=== PATIENT | female | born 1955 | race Two or more races ===

== ENCOUNTER 2021-05-01 16:14 | Inpatient (IN) | payer MEDICARE, OTHER ==
[~2021-05-01] VITALS: Ht 172.7 cm; Wt 72.0 kg
[2021-05-01] MEDS ORDERED: CHOLECALCIFEROL (VITD3) 2,000 UNIT CAP/TAB PO ONE (16:30)
[2021-05-01] MEDS ORDERED: methylPREDNISolone SOD SUCC 125 MG/2 ML VL IV ONE (16:30)
[2021-05-01] MEDS ORDERED: AZITHROMYCIN 500MG/ 250ML 250 ML IV ONE (16:30)
[2021-05-01] MEDS ORDERED: ZINC SULFATE 220mg CAP or TAB PO ONE (16:30)
[2021-05-01] MEDS ORDERED: ASCORBIC ACID 500 MG TAB PO ONE (16:30)
[2021-05-01] MEDS ORDERED: ACETAMINOPHEN 500 MG TAB PO ONE (16:45)
[2021-05-01 17:39] LABS: Basophils # (auto) 0 10 ^3/uL (0-0.2); Basophils % (auto) 0.1 % (0.0-2.0); Eosinophils # (auto) 0 10 ^3/uL (0-0.8); Hemoglobin 13.9 g/dL (12.2-16.2); Lymphocytes # (auto) 0.5 10 ^3/uL (0.4-5.4); Lymphocytes % (auto) 15.1 % (10.0-50.0); Mean Corpuscular Hemoglobin 31.4 pg (28.0-32.0); Mean Corpuscular Hgb Conc. 33.8 g/dL (32.0-36.0); Mean Corpuscular Volume 92.8 fL (80.0-100.0); Monocytes # (auto) 0.2 10 ^3/uL (0-1.3); Monocytes % (auto) 6.2 % (0.0-12.0); Neutrophils # (auto) 2.8 10 ^3/uL (1.6-8.6); Neutrophils % (auto) 78.6 % (37.0-80.0); Red Blood Cells 4.42 10^6/uL (4.0-5.20); Red Cell Distribution Width 13.8 % (11.8-14.3); White Blood Cell 3.5 10^3/uL (4.4-10.8)
[2021-05-01 17:44] LABS: Albumin 2.8 g/dL (3.4-5.0); Anion Gap 10 (5-15); Blood Urea Nitrogen 14 mg/dL (7-18); Carbon Dioxide 24 mmol/L (21-32); Chloride 104 mmol/L (98-107); Glucose 94 mg/dL (74-106); Potassium 3.1 mmol/L (3.5-5.1); Sodium 138 mmol/L (136-145)
[2021-05-01 17:51] LABS: Alanine Aminotransferase 41 U/L (13-56); Alkaline Phosphatase 63 U/L (45-117); Aspartate Aminotransferase 61 U/L (15-37); BUN/Creatinine Ratio 25.9; Bilirubin, Total 0.7 mg/dL (0.2-1.0); GFR African American 144 mL/min; GFR Non-African American 119 mL/min; Total Protein 6.2 g/dL (6.4-8.2)
[2021-05-01] MEDS ORDERED: REMDESIVIR PER PHARMACY 0 ML IV SCH (18:00)
[2021-05-01] MEDS ORDERED: POTASSIUM CHL 20MEQ/50ML 50 ML IV ONE (18:00)
[2021-05-01] MEDS ORDERED: REMDESIVIR 200 MG in NS 210ml LOADING DOSE ADULT IV ONE (20:30)
[2021-05-01] MEDS ORDERED: cefTRIAXone 1GM/50ML D5W 50 ML IV ONE (21:30)
[2021-05-01] MEDS: BUDESONIDE (INHALATION) 180 MCG IH IN SCH (22:00)
[2021-05-01] MEDS: IPRATROPIUM BROMIDE HFA AER IN SCH (22:00)
[2021-05-01] MEDS: ENOXAPARIN SOD 40 MG/0.4 ML SYRINGE SC SCH (23:00)
[2021-05-01] MEDS ORDERED: NITROGLYCERIN 0.4 MG SL TAB SL PRN (23:45)
[2021-05-01] MEDS ORDERED: MORPHINE SULFATE INJECTION 2 MG/ML SYRG IV PRN (23:45)
[2021-05-02] MEDS ORDERED: ROSU5TAB5 PO (02:08)
[2021-05-02] MEDS ORDERED: ASPI81CH49 PO (02:08)
[2021-05-02] MEDS ORDERED: SERT100T PO (02:08)
[2021-05-02] MEDS ORDERED: AMLO-496 PO (02:08)
[2021-05-02] MEDS ORDERED: OMEP20TA PO (02:08)
[2021-05-02] MEDS ORDERED: SULI200T4 PO (02:08)
[2021-05-02] MEDS: IPRATROPIUM BROMIDE HFA AER IN SCH ×2 (07:28→14:36)
[2021-05-02 07:40] LABS: Basophils # (auto) 0 10 ^3/uL (0-0.2); Basophils % (auto) 0.4 % (0.0-2.0); Eosinophils # (auto) 0 10 ^3/uL (0-0.8); Hematocrit 40.6 % (36.0-46.0); Lymphocytes # (auto) 0.5 10 ^3/uL (0.4-5.4); Lymphocytes % (auto) 17.1 % (10.0-50.0); Mean Corpuscular Hemoglobin 31.7 pg (28.0-32.0); Mean Corpuscular Hgb Conc. 34.4 g/dL (32.0-36.0); Mean Corpuscular Volume 92.2 fL (80.0-100.0); Monocytes # (auto) 0.1 10 ^3/uL (0-1.3); Monocytes % (auto) 5.5 % (0.0-12.0); Neutrophils # (auto) 2.1 10 ^3/uL (1.6-8.6); Red Blood Cells 4.41 10^6/uL (4.0-5.20); Red Cell Distribution Width 13.4 % (11.8-14.3); White Blood Cell 2.7 10^3/uL (4.4-10.8)
[2021-05-02 08:14] LABS: Albumin 2.5 g/dL (3.4-5.0); BUN/Creatinine Ratio 46.4; Calcium 7.9 mg/dL (8.5-10.1); Potassium 3.1 mmol/L (3.5-5.1)
[2021-05-02 08:17] LABS: Bilirubin, Total 0.5 mg/dL (0.2-1.0); Total Protein 5.9 g/dL (6.4-8.2)
[2021-05-02 08:59] LABS: Urine Bacteria NONE SEEN /hpf (None Seen); Urine Blood Negative /uL (Negative); Urine Specific Gravity 1.015 (1.001-1.035); Urine WBC 1 /hpf (0 - 5)
[2021-05-02] MEDS: cefTRIAXone 1GM/50ML D5W 50 ML IV SCH (09:37)
[2021-05-02] MEDS: BUDESONIDE (INHALATION) 180 MCG IH IN SCH ×2 (10:00→21:42)
[2021-05-02] MEDS: DexAMETHasone SOD PHOS 10MG/1ML VIAL INJ IV SCH (10:21)
[2021-05-02] MEDS: AZITHROMYCIN 500MG/ 250ML 250 ML IV SCH (10:21)
[2021-05-02] MEDS: ZINC SULFATE 220mg CAP or TAB PO SCH (10:21)
[2021-05-02] MEDS: IVERMECTIN 3 MG TAB PO SCH (10:22)
[2021-05-02] MEDS: ASCORBIC ACID 1,000 MG TAB PO SCH (10:22)
[2021-05-02] MEDS: CHOLECALCIFEROL (VITD3) 2,000 UNIT CAP/TAB PO SCH (10:22)
[2021-05-02] MEDS: ENOXAPARIN SOD 40 MG/0.4 ML SYRINGE SC SCH ×2 (10:22→22:43)
[2021-05-02] MEDS ORDERED: IOHEXOL 350 MG/ML 100ML IJ ONE ×2 (11:04→14:17)
[2021-05-02 14:39] VITALS: BP 168/82
[2021-05-02] MEDS ORDERED: IPRATROPIUM BROMIDE HFA AER IN SCH (15:15)
[2021-05-02] MEDS: REMDESIVIR 100mg 100 MG in SODIUM CHL 0.9% 230 ML IV SCH (16:37)
[2021-05-02 17:00] VITALS: BP 126/71
[2021-05-02 20:00] VITALS: BP 128/78
[2021-05-02] MEDS: ALBUTEROL SULF HFA 90MCG INH 200DOSE IN PRN (21:45)
[2021-05-02] MEDS: ONDANSETRON HCL 4 MG/2 ML VIAL IV PRN (22:43)
[2021-05-03] MEDS: ACETAMINOPHEN 500 MG TAB PO PRN (03:17)
[2021-05-03 05:00] VITALS: BP 131/73
[2021-05-03] MEDS: BUDESONIDE (INHALATION) 180 MCG IH IN SCH ×2 (06:56→22:14)
[2021-05-03] MEDS: ALBUTEROL SULF HFA 90MCG INH 200DOSE IN PRN ×2 (06:56→22:15)
[2021-05-03 07:08] LABS: Potassium 3.6 mmol/L (3.5-5.1)
[2021-05-03 07:18] LABS: Albumin 2.5 g/dL (3.4-5.0); BUN/Creatinine Ratio 66.7; Bilirubin, Total 0.6 mg/dL (0.2-1.0); Total Protein 5.8 g/dL (6.4-8.2)
[2021-05-03 09:00] VITALS: BP 112/55
[2021-05-03] MEDS: cefTRIAXone 1GM/50ML D5W 50 ML IV SCH (09:49)
[2021-05-03] MEDS: DexAMETHasone SOD PHOS 10MG/1ML VIAL INJ IV SCH (09:49)
[2021-05-03] MEDS: AZITHROMYCIN 500MG/ 250ML 250 ML IV SCH (09:49)
[2021-05-03] MEDS: IVERMECTIN 3 MG TAB PO SCH (09:52)
[2021-05-03] MEDS: ASCORBIC ACID 1,000 MG TAB PO SCH (09:52)
[2021-05-03] MEDS: ZINC SULFATE 220mg CAP or TAB PO SCH (09:52)
[2021-05-03] MEDS: CHOLECALCIFEROL (VITD3) 2,000 UNIT CAP/TAB PO SCH (09:53)
[2021-05-03] MEDS: ENOXAPARIN SOD 40 MG/0.4 ML SYRINGE SC SCH ×2 (09:53→21:32)
[2021-05-03 13:00] VITALS: BP 126/76
[2021-05-03] MEDS: REMDESIVIR 100mg 100 MG in SODIUM CHL 0.9% 230 ML IV SCH (14:45)
[2021-05-03 17:00] VITALS: BP 124/78
[2021-05-03 22:00] VITALS: BP 137/77
[2021-05-03] MEDS: ONDANSETRON HCL 4 MG/2 ML VIAL IV PRN (22:20)
[2021-05-03] MEDS: TEMAZEPAM 15 MG CAP PO PRN (22:21)
[2021-05-04 05:26] VITALS: BP 149/74
[2021-05-04 06:04] LABS: Potassium 3.7 mmol/L (3.5-5.1)
[2021-05-04 06:11] LABS: Albumin 2.7 g/dL (3.4-5.0); BUN/Creatinine Ratio 67.5; Bilirubin, Total 0.7 mg/dL (0.2-1.0); Calcium 8.1 mg/dL (8.5-10.1); Total Protein 6.1 g/dL (6.4-8.2)
[2021-05-04] MEDS ORDERED: HYDROcodone-ACET 5/325MG TAB PO ONE (06:15)
[2021-05-04] MEDS: ALBUTEROL SULF HFA 90MCG INH 200DOSE IN PRN ×2 (06:44→20:49)
[2021-05-04] MEDS: BUDESONIDE (INHALATION) 180 MCG IH IN SCH ×2 (06:44→20:49)
[2021-05-04] MEDS: cefTRIAXone 1GM/50ML D5W 50 ML IV SCH (07:43)
[2021-05-04] MEDS: DexAMETHasone SOD PHOS 10MG/1ML VIAL INJ IV SCH (08:37)
[2021-05-04] MEDS: AZITHROMYCIN 500MG/ 250ML 250 ML IV SCH (08:38)
[2021-05-04] MEDS: ZINC SULFATE 220mg CAP or TAB PO SCH (08:38)
[2021-05-04] MEDS: CHOLECALCIFEROL (VITD3) 2,000 UNIT CAP/TAB PO SCH (08:39)
[2021-05-04] MEDS: ASCORBIC ACID 1,000 MG TAB PO SCH (08:39)
[2021-05-04] MEDS: IVERMECTIN 3 MG TAB PO SCH (08:39)
[2021-05-04] MEDS: ENOXAPARIN SOD 40 MG/0.4 ML SYRINGE SC SCH ×2 (08:40→21:24)
[2021-05-04 09:00] VITALS: BP 131/67
[2021-05-04 13:00] VITALS: BP 134/78
[2021-05-04] MEDS ORDERED: FUROSEMIDE 20 MG/2 ML VIAL IV ONE (13:15)
[2021-05-04] MEDS: REMDESIVIR 100mg 100 MG in SODIUM CHL 0.9% 230 ML IV SCH (15:05)
[2021-05-04] MEDS: HYDROcodone-ACET 5/325MG TAB PO PRN (15:06)
[2021-05-04 17:00] VITALS: BP 120/70
[2021-05-04 22:00] VITALS: BP 130/71
[2021-05-05] VITALS (9 sets, daily range): BP systolic 121–138; BP diastolic 69–89
[2021-05-05] MEDS: TEMAZEPAM 15 MG CAP PO PRN (01:17)
[2021-05-05 05:43] LABS: Basophils # (auto) 0.1 10 ^3/uL (0-0.2); Basophils % (auto) 0.5 % (0.0-2.0); Eosinophils # (auto) 0 10 ^3/uL (0-0.8); Hematocrit 41.4 % (36.0-46.0); Hemoglobin 14.5 g/dL (12.2-16.2); Lymphocytes # (auto) 0.8 10 ^3/uL (0.4-5.4); Lymphocytes % (auto) 5.2 % (10.0-50.0); Mean Corpuscular Hemoglobin 32.2 pg (28.0-32.0); Mean Corpuscular Volume 91.9 fL (80.0-100.0); Monocytes # (auto) 0.9 10 ^3/uL (0-1.3); Monocytes % (auto) 5.7 % (0.0-12.0); Neutrophils # (auto) 14.1 10 ^3/uL (1.6-8.6); Neutrophils % (auto) 88.6 % (37.0-80.0); Nucleated Red Blood Cells % 0.1 %; Red Cell Distribution Width 13.6 % (11.8-14.3); White Blood Cell 15.9 10^3/uL (4.4-10.8)
[2021-05-05 06:20] LABS: Albumin 2.8 g/dL (3.4-5.0); Calcium 8.2 mg/dL (8.5-10.1); Potassium 3.7 mmol/L (3.5-5.1)
[2021-05-05 06:27] LABS: Bilirubin, Total 0.7 mg/dL (0.2-1.0); Total Protein 6.3 g/dL (6.4-8.2)
[2021-05-05] MEDS: ALBUTEROL SULF HFA 90MCG INH 200DOSE IN PRN ×2 (06:45→23:44)
[2021-05-05] MEDS: BUDESONIDE (INHALATION) 180 MCG IH IN SCH ×2 (06:45→21:14)
[2021-05-05] MEDS: cefTRIAXone 1GM/50ML D5W 50 ML IV SCH (07:38)
[2021-05-05] MEDS: DexAMETHasone SOD PHOS 10MG/1ML VIAL INJ IV SCH (08:45)
[2021-05-05] MEDS: FUROSEMIDE 20 MG/2 ML VIAL IV SCH (08:45)
[2021-05-05] MEDS: CHOLECALCIFEROL (VITD3) 2,000 UNIT CAP/TAB PO SCH (08:46)
[2021-05-05] MEDS: IVERMECTIN 3 MG TAB PO SCH (08:46)
[2021-05-05] MEDS: ZINC SULFATE 220mg CAP or TAB PO SCH (08:46)
[2021-05-05] MEDS: AZITHROMYCIN 500MG/ 250ML 250 ML IV SCH (08:46)
[2021-05-05] MEDS: ASCORBIC ACID 1,000 MG TAB PO SCH (08:46)
[2021-05-05] MEDS: ENOXAPARIN SOD 40 MG/0.4 ML SYRINGE SC SCH ×2 (08:47→20:51)
[2021-05-05] MEDS: REMDESIVIR 100mg 100 MG in SODIUM CHL 0.9% 230 ML IV SCH (15:03)
[2021-05-05] MEDS: ONDANSETRON HCL 4 MG/2 ML VIAL IV PRN (18:25)
[2021-05-05] MEDS: HYDROcodone-ACET 5/325MG TAB PO PRN (19:58)
[2021-05-06] VITALS (37 sets, daily range): BP systolic 76–140; BP diastolic 49–76
[2021-05-06] MEDS: HYDROcodone-ACET 5/325MG TAB PO PRN (05:21)
[2021-05-06] MEDS: BUDESONIDE (INHALATION) 180 MCG IH IN SCH (06:39)
[2021-05-06] MEDS: ALBUTEROL SULF HFA 90MCG INH 200DOSE IN PRN (06:39)
[2021-05-06] MEDS: cefTRIAXone 1GM/50ML D5W 50 ML IV SCH (09:00)
[2021-05-06] MEDS: ASCORBIC ACID 1,000 MG TAB PO SCH (09:42)
[2021-05-06] MEDS: FUROSEMIDE 20 MG/2 ML VIAL IV SCH (09:42)
[2021-05-06] MEDS: ZINC SULFATE 220mg CAP or TAB PO SCH (09:42)
[2021-05-06] MEDS: DexAMETHasone SOD PHOS 10MG/1ML VIAL INJ IV SCH (09:42)
[2021-05-06] MEDS: CHOLECALCIFEROL (VITD3) 2,000 UNIT CAP/TAB PO SCH (09:43)
[2021-05-06] MEDS: ENOXAPARIN SOD 40 MG/0.4 ML SYRINGE SC SCH ×2 (09:43→23:10)
[2021-05-06] MEDS: AZITHROMYCIN 500MG/ 250ML 250 ML IV SCH (10:00)
[2021-05-06] MEDS: IVERMECTIN 3 MG TAB PO SCH (10:00)
[2021-05-06] MEDS ORDERED: ETOMIDATE (2MG/ML) 20ML VIAL IV ONE ×2 (11:22→12:45)
[2021-05-06] MEDS ORDERED: ROCURONIUM 10MG/ML 10ML VIAL IV ONE ×2 (11:22→12:45)
[2021-05-06] MEDS ORDERED: SUCCINYLCHOLINE CHLORIDE 20 MG/ML 10ML VIAL IV ONE (11:23)
[2021-05-06] MEDS ORDERED: fentaNYL Drip 2500mCg/250mlNS 250 ML IV ONE (11:25)
[2021-05-06] MEDS: MIDAZOLAM DRIP 50 mg/50mL 50 ML IV SCH ×2 (11:50→21:22)
[2021-05-06] MEDS: fentaNYL Drip 2500mCg/250mlNS 250 ML IV SCH (11:50)
[2021-05-06] MEDS: NOREPINEPHRINE 8 MG/250ML KIT 250 ML IV SCH (13:00)
[2021-05-06 15:00] LABS: INR 1.25 (0.9-1.15); Partial Thromboplastin Time 29.7 sec (23.6-33.0)
[2021-05-06] MEDS ORDERED: LIDOCAINE 1% (LOCAL ANESTH.) PF 5ml SDV ID ONE (17:00)
[2021-05-06] MEDS: SODIUM CHLOR 0.9% PF (SALINE LOCK) 10ML VIAL/SYR IV SCH (23:09)
[2021-05-06] MEDS: ALBUTEROL SULF 2.5 MG/0.5ML(0.5%) NEB SOLN NEB PRN (23:12)
[2021-05-06] MEDS: BUDESONIDE (INHALATION) 0.5 MG/2 ML NEB NEB SCH (23:12)
[2021-05-07] VITALS (76 sets, daily range): BP systolic 92–150; BP diastolic 46–74
[2021-05-07] MEDS: fentaNYL Drip 2500mCg/250mlNS 250 ML IV SCH ×3 (00:19→22:40)
[2021-05-07] MEDS: MIDAZOLAM DRIP 50 mg/50mL 50 ML IV SCH ×4 (01:56→23:12)
[2021-05-07 08:28] LABS: Hematocrit 38.1 % (36.0-46.0); Hemoglobin 13.1 g/dL (12.2-16.2); Mean Corpuscular Hemoglobin 31.8 pg (28.0-32.0); Mean Corpuscular Hgb Conc. 34.3 g/dL (32.0-36.0); Mean Corpuscular Volume 92.8 fL (80.0-100.0); Red Blood Cells 4.11 10^6/uL (4.0-5.20); Red Cell Distribution Width 13.8 % (11.8-14.3); White Blood Cell 26.6 10^3/uL (4.4-10.8)
[2021-05-07 08:35] LABS: Basophils % (manual) 0 (0.0-2.0); Blast Cells 0; Eosinophils % (manual) 0 (0-7); Metamyelocytes % 0; Myelocytes % 0; Promyelocytes % 0; Reactive Lymphocytes 0
[2021-05-07 08:37] LABS: Albumin 2.1 g/dL (3.4-5.0); Calcium 8.2 mg/dL (8.5-10.1); Potassium 3.5 mmol/L (3.5-5.1)
[2021-05-07 08:40] LABS: BUN/Creatinine Ratio 56.9; Bilirubin, Total 0.6 mg/dL (0.2-1.0)
[2021-05-07] MEDS: cefTRIAXone 1GM/50ML D5W 50 ML IV SCH (09:00)
[2021-05-07] MEDS: SODIUM CHLOR 0.9% PF (SALINE LOCK) 10ML VIAL/SYR IV SCH ×2 (10:00→22:41)
[2021-05-07] MEDS: DexAMETHasone SOD PHOS 10MG/1ML VIAL INJ IV SCH (10:00)
[2021-05-07] MEDS: CHOLECALCIFEROL (VITD3) 2,000 UNIT CAP/TAB PO SCH (10:00)
[2021-05-07] MEDS: ZINC SULFATE 220mg CAP or TAB PO SCH (10:00)
[2021-05-07] MEDS: ENOXAPARIN SOD 40 MG/0.4 ML SYRINGE SC SCH ×2 (10:00→22:41)
[2021-05-07] MEDS: FUROSEMIDE 20 MG/2 ML VIAL IV SCH (10:00)
[2021-05-07] MEDS: ASCORBIC ACID 1,000 MG TAB PO SCH (10:00)
[2021-05-07] MEDS: BUDESONIDE (INHALATION) 0.5 MG/2 ML NEB NEB SCH ×2 (10:00→18:36)
[2021-05-07] MEDS: NOREPINEPHRINE 8 MG/250ML KIT 250 ML IV SCH (11:15)
[2021-05-07 11:50] LABS: Band Neutrophils % (manual) 14; Lymphocytes % (manual) 5 (10.0-50.0); Monocytes % (manual) 3 (0-12)
[2021-05-07] MEDS ORDERED: VANCOMYCIN PER PHARMACY 0 MG IV SCH (14:15)
[2021-05-07] MEDS: VANCOMYCIN 1GM/250ML 250 ML IV SCH (16:00)
[2021-05-07] MEDS: PIPERACILLIN-TAZOB 3.375GM 100 ML IV SCH ×2 (18:13→23:08)
[2021-05-07] MEDS: ALBUTEROL SULF 2.5 MG/0.5ML(0.5%) NEB SOLN NEB PRN (18:36)
[2021-05-08] VITALS (57 sets, daily range): BP systolic 88–131; BP diastolic 50–75
[2021-05-08] MEDS: MIDAZOLAM DRIP 50 mg/50mL 50 ML IV SCH ×6 (01:31→22:35)
[2021-05-08] MEDS: VANCOMYCIN 1GM/250ML 250 ML IV SCH ×2 (04:20→17:13)
[2021-05-08] MEDS: BUDESONIDE (INHALATION) 0.5 MG/2 ML NEB NEB SCH ×2 (05:53→22:20)
[2021-05-08] MEDS: ALBUTEROL SULF 2.5 MG/0.5ML(0.5%) NEB SOLN NEB PRN ×2 (05:53→22:20)
[2021-05-08] MEDS: PIPERACILLIN-TAZOB 3.375GM 100 ML IV SCH ×3 (06:36→17:16)
[2021-05-08] MEDS: DexAMETHasone SOD PHOS 10MG/1ML VIAL INJ IV SCH (08:59)
[2021-05-08] MEDS: ENOXAPARIN SOD 40 MG/0.4 ML SYRINGE SC SCH ×2 (09:00→21:34)
[2021-05-08] MEDS: ASCORBIC ACID 1,000 MG TAB PO SCH (09:01)
[2021-05-08] MEDS: FUROSEMIDE 20 MG/2 ML VIAL IV SCH (09:01)
[2021-05-08] MEDS: PANTOPRAZOLE 40 MG/10 ML VIAL INJ IV SCH (09:01)
[2021-05-08] MEDS: CHOLECALCIFEROL (VITD3) 2,000 UNIT CAP/TAB PO SCH (09:01)
[2021-05-08] MEDS: ZINC SULFATE 220mg CAP or TAB PO SCH (09:02)
[2021-05-08] MEDS: SODIUM CHLOR 0.9% PF (SALINE LOCK) 10ML VIAL/SYR IV SCH ×2 (09:02→21:33)
[2021-05-08] MEDS: fentaNYL Drip 2500mCg/250mlNS 250 ML IV SCH (09:03)
[2021-05-08] MEDS: NOREPINEPHRINE 8 MG/250ML KIT 250 ML IV SCH (09:06)
[2021-05-08 11:24] LABS: Hematocrit 34.2 % (36.0-46.0); Hemoglobin 11.7 g/dL (12.2-16.2); Mean Corpuscular Hemoglobin 31.7 pg (28.0-32.0); Mean Corpuscular Hgb Conc. 34.1 g/dL (32.0-36.0); Mean Corpuscular Volume 92.9 fL (80.0-100.0); Red Blood Cells 3.68 10^6/uL (4.0-5.20); Red Cell Distribution Width 13.9 % (11.8-14.3); White Blood Cell 20.9 10^3/uL (4.4-10.8)
[2021-05-08 11:30] LABS: Basophils % (manual) 0 (0.0-2.0); Blast Cells 0; Eosinophils % (manual) 0 (0-7); Myelocytes % 0; Promyelocytes % 0; Reactive Lymphocytes 0
[2021-05-08 11:35] LABS: Albumin 1.6 g/dL (3.4-5.0); Calcium 6.5 mg/dL (8.5-10.1); Potassium 3.4 mmol/L (3.5-5.1)
[2021-05-08 11:39] LABS: Bilirubin, Total 0.4 mg/dL (0.2-1.0); Total Protein 5.3 g/dL (6.4-8.2)
[2021-05-08 11:47] LABS: Band Neutrophils % (manual) 2; Lymphocytes % (manual) 1 (10.0-50.0); Metamyelocytes % 2; Monocytes % (manual) 5 (0-12)
[2021-05-08] MEDS ORDERED: TOCILIZUMAB 400 MG in SODIUM CHL 0.9% 80 ML IV ONE ×2 (14:00→22:00)
[2021-05-08] MEDS: Vital AF 1.2 Cal 1 liter bottle GT SCH (17:43)
[2021-05-08] MEDS ORDERED: POTASSIUM EFFERVESENT TAB 25 MEQ GT ONE (20:00)
[2021-05-09] VITALS (74 sets, daily range): BP systolic 95–141; BP diastolic 51–79
[2021-05-09] MEDS: PIPERACILLIN-TAZOB 3.375GM 100 ML IV SCH ×5 (01:47→23:15)
[2021-05-09] MEDS: VANCOMYCIN 1GM/250ML 250 ML IV SCH ×2 (04:58→14:49)
[2021-05-09] MEDS: MIDAZOLAM DRIP 50 mg/50mL 50 ML IV SCH ×3 (06:53→18:19)
[2021-05-09] MEDS: ENOXAPARIN SOD 40 MG/0.4 ML SYRINGE SC SCH ×2 (08:26→22:00)
[2021-05-09] MEDS: PANTOPRAZOLE 40 MG/10 ML VIAL INJ IV SCH (08:26)
[2021-05-09] MEDS: CHOLECALCIFEROL (VITD3) 2,000 UNIT CAP/TAB PO SCH (08:26)
[2021-05-09] MEDS: DexAMETHasone SOD PHOS 10MG/1ML VIAL INJ IV SCH (08:26)
[2021-05-09] MEDS: FUROSEMIDE 20 MG/2 ML VIAL IV SCH (08:26)
[2021-05-09] MEDS: SODIUM CHLOR 0.9% PF (SALINE LOCK) 10ML VIAL/SYR IV SCH ×2 (08:27→22:00)
[2021-05-09] MEDS: ASCORBIC ACID 1,000 MG TAB PO SCH (08:27)
[2021-05-09] MEDS: ZINC SULFATE 220mg CAP or TAB PO SCH (08:27)
[2021-05-09 09:15] LABS: Hematocrit 32.2 % (36.0-46.0); Hemoglobin 10.9 g/dL (12.2-16.2); Mean Corpuscular Hemoglobin 31.9 pg (28.0-32.0); Mean Corpuscular Hgb Conc. 33.9 g/dL (32.0-36.0); Red Blood Cells 3.42 10^6/uL (4.0-5.20); Red Cell Distribution Width 13.9 % (11.8-14.3); White Blood Cell 13.5 10^3/uL (4.4-10.8)
[2021-05-09 09:17] LABS: Basophils % (manual) 0 (0.0-2.0); Blast Cells 0; Eosinophils % (manual) 0 (0-7); Myelocytes % 0; Promyelocytes % 0; Reactive Lymphocytes 0
[2021-05-09 09:36] LABS: Albumin 1.7 g/dL (3.4-5.0); Calcium 7.6 mg/dL (8.5-10.1); Potassium 3.5 mmol/L (3.5-5.1)
[2021-05-09 09:39] LABS: BUN/Creatinine Ratio 45.5; Bilirubin, Total 0.4 mg/dL (0.2-1.0)
[2021-05-09 10:12] LABS: Band Neutrophils % (manual) 2; Lymphocytes % (manual) 3 (10.0-50.0); Metamyelocytes % 1; Monocytes % (manual) 3 (0-12)
[2021-05-09] MEDS: NOREPINEPHRINE 8 MG/250ML KIT 250 ML IV SCH (11:15)
[2021-05-09] MEDS: fentaNYL Drip 2500mCg/250mlNS 250 ML IV SCH ×2 (12:24→23:14)
[2021-05-09] MEDS: Vital AF 1.2 Cal 1 liter bottle GT SCH (14:20)
[2021-05-09] MEDS: ALBUTEROL SULF 2.5 MG/0.5ML(0.5%) NEB SOLN NEB PRN (21:50)
[2021-05-09] MEDS: BUDESONIDE (INHALATION) 0.5 MG/2 ML NEB NEB SCH (21:51)
[2021-05-10] VITALS (66 sets, daily range): BP systolic 101–141; BP diastolic 50–82
[2021-05-10] MEDS: MIDAZOLAM DRIP 50 mg/50mL 50 ML IV SCH ×4 (01:43→18:41)
[2021-05-10] MEDS: VANCOMYCIN 1GM/250ML 250 ML IV SCH ×3 (02:00→21:03)
[2021-05-10 04:54] LABS: Hematocrit 33.6 % (36.0-46.0); Hemoglobin 11.3 g/dL (12.2-16.2); Mean Corpuscular Hemoglobin 31.8 pg (28.0-32.0); Mean Corpuscular Hgb Conc. 33.8 g/dL (32.0-36.0); Mean Corpuscular Volume 94.1 fL (80.0-100.0); Red Blood Cells 3.57 10^6/uL (4.0-5.20); Red Cell Distribution Width 14.1 % (11.8-14.3); White Blood Cell 13.3 10^3/uL (4.4-10.8)
[2021-05-10 05:09] LABS: Potassium 3.9 mmol/L (3.5-5.1)
[2021-05-10 05:21] LABS: Albumin 1.8 g/dL (3.4-5.0); BUN/Creatinine Ratio 58.1; Bilirubin, Total 0.5 mg/dL (0.2-1.0); CRP High Sensitivity 3.15 mg/dL (< 0.3); Calcium 8.3 mg/dL (8.5-10.1); Total Protein 5.2 g/dL (6.4-8.2)
[2021-05-10] MEDS: PIPERACILLIN-TAZOB 3.375GM 100 ML IV SCH ×4 (05:34→23:26)
[2021-05-10 05:41] LABS: Basophils % (manual) 0 (0.0-2.0); Blast Cells 0; Promyelocytes % 0; Reactive Lymphocytes 0
[2021-05-10] MEDS: BUDESONIDE (INHALATION) 0.5 MG/2 ML NEB NEB SCH ×2 (06:02→22:06)
[2021-05-10] MEDS: ALBUTEROL SULF 2.5 MG/0.5ML(0.5%) NEB SOLN NEB PRN ×2 (06:02→22:06)
[2021-05-10] MEDS ORDERED: DEXTROSE (50%) 50ML SYRG IV PRN (08:15)
[2021-05-10 08:17] LABS: Band Neutrophils % (manual) 6; Eosinophils % (manual) 1 (0-7); Lymphocytes % (manual) 8 (10.0-50.0); Metamyelocytes % 1; Monocytes % (manual) 3 (0-12); Myelocytes % 2
[2021-05-10] MEDS: FUROSEMIDE 20 MG/2 ML VIAL IV SCH (09:03)
[2021-05-10] MEDS: PANTOPRAZOLE 40 MG/10 ML VIAL INJ IV SCH (09:03)
[2021-05-10] MEDS: ENOXAPARIN SOD 40 MG/0.4 ML SYRINGE SC SCH ×2 (09:03→21:18)
[2021-05-10] MEDS: ZINC SULFATE 220mg CAP or TAB PO SCH (09:03)
[2021-05-10] MEDS: DexAMETHasone SOD PHOS 10MG/1ML VIAL INJ IV SCH (09:03)
[2021-05-10] MEDS: ASCORBIC ACID 1,000 MG TAB PO SCH (09:04)
[2021-05-10] MEDS: CHOLECALCIFEROL (VITD3) 2,000 UNIT CAP/TAB PO SCH (09:04)
[2021-05-10] MEDS: SODIUM CHLOR 0.9% PF (SALINE LOCK) 10ML VIAL/SYR IV SCH ×2 (09:04→21:55)
[2021-05-10] MEDS: NOREPINEPHRINE 8 MG/250ML KIT 250 ML IV SCH (11:15)
[2021-05-10] MEDS: InsuLIN REG 1unit/0.01ml Soln (100units/ml) SC SCH ×2 (12:00→18:04)
[2021-05-10] MEDS: ACCU-CHEK COMFORT CURVE STRIP VI SCH ×3 (12:20→23:26)
[2021-05-10] MEDS: fentaNYL Drip 2500mCg/250mlNS 250 ML IV SCH (12:22)
[2021-05-10] MEDS ORDERED: PROPOFOL 100 ML IV ONE (17:53)
[2021-05-10] MEDS: PROPOFOL 100 ML IV SCH (18:13)
[2021-05-11] VITALS (68 sets, daily range): BP systolic 82–136; BP diastolic 50–77
[2021-05-11] MEDS: InsuLIN REG 1unit/0.01ml Soln (100units/ml) SC SCH ×4 (00:03→19:06)
[2021-05-11] MEDS: MIDAZOLAM DRIP 50 mg/50mL 50 ML IV SCH ×4 (00:56→18:46)
[2021-05-11] MEDS: fentaNYL Drip 2500mCg/250mlNS 250 ML IV SCH ×2 (00:56→12:55)
[2021-05-11 04:27] LABS: Hemoglobin 11.6 g/dL (12.2-16.2); Mean Corpuscular Hemoglobin 32.1 pg (28.0-32.0); Mean Corpuscular Hgb Conc. 34.1 g/dL (32.0-36.0); Mean Corpuscular Volume 93.9 fL (80.0-100.0); Red Blood Cells 3.62 10^6/uL (4.0-5.20); Red Cell Distribution Width 13.5 % (11.8-14.3); White Blood Cell 13.3 10^3/uL (4.4-10.8)
[2021-05-11 04:54] LABS: Albumin 1.7 g/dL (3.4-5.0); BUN/Creatinine Ratio 65.2; Calcium 7.7 mg/dL (8.5-10.1); Potassium 4.2 mmol/L (3.5-5.1)
[2021-05-11 04:57] LABS: Bilirubin, Total 0.5 mg/dL (0.2-1.0)
[2021-05-11 05:02] LABS: Basophils % (manual) 0 (0.0-2.0); Blast Cells 0; Eosinophils % (manual) 0 (0-7); Promyelocytes % 0; Reactive Lymphocytes 0
[2021-05-11] MEDS: PIPERACILLIN-TAZOB 3.375GM 100 ML IV SCH ×3 (05:48→18:38)
[2021-05-11] MEDS: ACCU-CHEK COMFORT CURVE STRIP VI SCH ×3 (06:31→18:38)
[2021-05-11] MEDS: BUDESONIDE (INHALATION) 0.5 MG/2 ML NEB NEB SCH ×2 (06:43→19:19)
[2021-05-11] MEDS: ALBUTEROL SULF 2.5 MG/0.5ML(0.5%) NEB SOLN NEB PRN ×2 (06:43→19:19)
[2021-05-11 07:01] LABS: Band Neutrophils % (manual) 30; Lymphocytes % (manual) 13 (10.0-50.0); Metamyelocytes % 1; Monocytes % (manual) 1 (0-12); Myelocytes % 3
[2021-05-11] MEDS: VANCOMYCIN 1GM/250ML 250 ML IV SCH ×2 (07:42→16:41)
[2021-05-11] MEDS: ASCORBIC ACID 1,000 MG TAB PO SCH (09:10)
[2021-05-11] MEDS: ZINC SULFATE 220mg CAP or TAB PO SCH (09:10)
[2021-05-11] MEDS: CHOLECALCIFEROL (VITD3) 2,000 UNIT CAP/TAB PO SCH (09:10)
[2021-05-11] MEDS: SODIUM CHLOR 0.9% PF (SALINE LOCK) 10ML VIAL/SYR IV SCH ×2 (09:10→21:55)
[2021-05-11] MEDS: DexAMETHasone SOD PHOS 10MG/1ML VIAL INJ IV SCH (09:11)
[2021-05-11] MEDS: ENOXAPARIN SOD 40 MG/0.4 ML SYRINGE SC SCH ×2 (09:11→21:55)
[2021-05-11] MEDS: PANTOPRAZOLE 40 MG/10 ML VIAL INJ IV SCH (09:11)
[2021-05-11] MEDS: FUROSEMIDE 20 MG/2 ML VIAL IV SCH (09:12)
[2021-05-11] MEDS: NOREPINEPHRINE 8 MG/250ML KIT 250 ML IV SCH ×2 (11:15→16:36)
[2021-05-11] MEDS: PROPOFOL 100 ML IV SCH (16:47)
[2021-05-12] VITALS (85 sets, daily range): BP systolic 82–147; BP diastolic 49–79
[2021-05-12] MEDS: PIPERACILLIN-TAZOB 3.375GM 100 ML IV SCH ×4 (00:29→18:00)
[2021-05-12] MEDS: ACCU-CHEK COMFORT CURVE STRIP VI SCH ×4 (00:29→18:00)
[2021-05-12] MEDS: fentaNYL Drip 2500mCg/250mlNS 250 ML IV SCH (01:33)
[2021-05-12] MEDS: VANCOMYCIN 1GM/250ML 250 ML IV SCH ×3 (03:14→23:21)
[2021-05-12] MEDS: InsuLIN REG 1unit/0.01ml Soln (100units/ml) SC SCH ×4 (06:00→18:00)
[2021-05-12] MEDS: ALBUTEROL SULF 2.5 MG/0.5ML(0.5%) NEB SOLN NEB PRN (06:25)
[2021-05-12] MEDS: BUDESONIDE (INHALATION) 0.5 MG/2 ML NEB NEB SCH (06:25)
[2021-05-12 06:43] LABS: Albumin 1.9 g/dL (3.4-5.0); Potassium 3.7 mmol/L (3.5-5.1)
[2021-05-12 06:54] LABS: BUN/Creatinine Ratio 59.5; Bilirubin, Total 0.4 mg/dL (0.2-1.0)
[2021-05-12 06:56] LABS: Hemoglobin 11.9 g/dL (12.2-16.2); Mean Corpuscular Hemoglobin 32.3 pg (28.0-32.0); Mean Corpuscular Hgb Conc. 34.1 g/dL (32.0-36.0); Mean Corpuscular Volume 94.5 fL (80.0-100.0); Red Cell Distribution Width 13.8 % (11.8-14.3); White Blood Cell 16.8 10^3/uL (4.4-10.8)
[2021-05-12 07:00] LABS: Basophils % (manual) 0 (0.0-2.0); Blast Cells 0; Eosinophils % (manual) 0 (0-7); Metamyelocytes % 0; Myelocytes % 0; Promyelocytes % 0; Reactive Lymphocytes 0
[2021-05-12 08:22] LABS: Band Neutrophils % (manual) 6; Lymphocytes % (manual) 6 (10.0-50.0); Monocytes % (manual) 4 (0-12)
[2021-05-12] MEDS: FUROSEMIDE 20 MG/2 ML VIAL IV SCH (08:49)
[2021-05-12] MEDS: SODIUM CHLOR 0.9% PF (SALINE LOCK) 10ML VIAL/SYR IV SCH ×2 (08:50→22:00)
[2021-05-12] MEDS: DexAMETHasone SOD PHOS 10MG/1ML VIAL INJ IV SCH (08:50)
[2021-05-12] MEDS: PANTOPRAZOLE 40 MG/10 ML VIAL INJ IV SCH (08:50)
[2021-05-12] MEDS: ENOXAPARIN SOD 40 MG/0.4 ML SYRINGE SC SCH ×2 (08:51→23:09)
[2021-05-12] MEDS: CHOLECALCIFEROL (VITD3) 2,000 UNIT CAP/TAB PO SCH (08:51)
[2021-05-12] MEDS: ASCORBIC ACID 1,000 MG TAB PO SCH (08:52)
[2021-05-12] MEDS: ZINC SULFATE 220mg CAP or TAB PO SCH (08:52)
[2021-05-12] MEDS: PROPOFOL 100 ML IV SCH (18:00)
[2021-05-13] VITALS (93 sets, daily range): BP systolic 88–137; BP diastolic 50–74
[2021-05-13] MEDS: BUDESONIDE (INHALATION) 0.5 MG/2 ML NEB NEB SCH ×3 (00:14→18:55)
[2021-05-13] MEDS: ALBUTEROL SULF 2.5 MG/0.5ML(0.5%) NEB SOLN NEB PRN ×4 (00:14→18:55)
[2021-05-13] MEDS: InsuLIN REG 1unit/0.01ml Soln (100units/ml) SC SCH ×4 (01:24→17:53)
[2021-05-13] MEDS: ACCU-CHEK COMFORT CURVE STRIP VI SCH ×5 (06:00→23:55)
[2021-05-13] MEDS: PIPERACILLIN-TAZOB 3.375GM 100 ML IV SCH ×4 (06:42→18:12)
[2021-05-13] MEDS: DexAMETHasone SOD PHOS 10MG/1ML VIAL INJ IV SCH (09:00)
[2021-05-13] MEDS: VANCOMYCIN 1GM/250ML 250 ML IV SCH ×2 (09:00→20:26)
[2021-05-13] MEDS: PANTOPRAZOLE 40 MG/10 ML VIAL INJ IV SCH (09:00)
[2021-05-13] MEDS: ASCORBIC ACID 1,000 MG TAB PO SCH (09:01)
[2021-05-13] MEDS: SODIUM CHLOR 0.9% PF (SALINE LOCK) 10ML VIAL/SYR IV SCH ×2 (09:01→22:23)
[2021-05-13] MEDS: CHOLECALCIFEROL (VITD3) 2,000 UNIT CAP/TAB PO SCH (09:02)
[2021-05-13] MEDS: ZINC SULFATE 220mg CAP or TAB PO SCH (09:02)
[2021-05-13 09:50] LABS: Albumin 1.8 g/dL (3.4-5.0); Calcium 7.8 mg/dL (8.5-10.1); Potassium 3.8 mmol/L (3.5-5.1)
[2021-05-13] MEDS: FUROSEMIDE 20 MG/2 ML VIAL IV SCH (09:52)
[2021-05-13 09:53] LABS: BUN/Creatinine Ratio 58.3; Bilirubin, Total 0.4 mg/dL (0.2-1.0); Total Protein 5.2 g/dL (6.4-8.2)
[2021-05-13] MEDS: fentaNYL Drip 2500mCg/250mlNS 250 ML IV SCH (11:14)
[2021-05-13] MEDS: MIDAZOLAM DRIP 50 mg/50mL 50 ML IV SCH ×2 (11:14→23:56)
[2021-05-13] MEDS: NOREPINEPHRINE 8 MG/250ML KIT 250 ML IV SCH (11:15)
[2021-05-13] MEDS: PROPOFOL 100 ML IV SCH ×2 (11:16→23:56)
[2021-05-13 12:03] LABS: Hematocrit 34.5 % (36.0-46.0); Hemoglobin 12.3 g/dL (12.2-16.2); Mean Corpuscular Hemoglobin 33.9 pg (28.0-32.0); Mean Corpuscular Hgb Conc. 35.6 g/dL (32.0-36.0); Mean Corpuscular Volume 95.2 fL (80.0-100.0); Red Blood Cells 3.62 10^6/uL (4.0-5.20)
[2021-05-13 12:12] LABS: Basophils % (manual) 0 (0.0-2.0); Blast Cells 0; Eosinophils % (manual) 0 (0-7); Monocytes % (manual) 0 (0-12); Promyelocytes % 0; Reactive Lymphocytes 0
[2021-05-13 12:30] LABS: Band Neutrophils % (manual) 4; Lymphocytes % (manual) 2 (10.0-50.0); Metamyelocytes % 6; Myelocytes % 1
[2021-05-14] VITALS (100 sets, daily range): BP systolic 65–177; BP diastolic 35–90
[2021-05-14] MEDS: PIPERACILLIN-TAZOB 3.375GM 100 ML IV SCH ×4 (01:12→18:21)
[2021-05-14] MEDS: InsuLIN REG 1unit/0.01ml Soln (100units/ml) SC SCH ×4 (01:13→17:09)
[2021-05-14 04:33] LABS: Hematocrit 34.6 % (36.0-46.0); Hemoglobin 11.6 g/dL (12.2-16.2); Mean Corpuscular Hemoglobin 31.8 pg (28.0-32.0); Mean Corpuscular Hgb Conc. 33.4 g/dL (32.0-36.0); Mean Corpuscular Volume 95.3 fL (80.0-100.0); Red Blood Cells 3.63 10^6/uL (4.0-5.20); Red Cell Distribution Width 13.5 % (11.8-14.3); White Blood Cell 21.2 10^3/uL (4.4-10.8)
[2021-05-14 04:38] LABS: Potassium 3.8 mmol/L (3.5-5.1)
[2021-05-14 04:42] LABS: Basophils % (manual) 0 (0.0-2.0); Blast Cells 0; Monocytes % (manual) 0 (0-12); Promyelocytes % 0; Reactive Lymphocytes 0
[2021-05-14 04:45] LABS: BUN/Creatinine Ratio 58.3; Bilirubin, Total 0.5 mg/dL (0.2-1.0); Calcium 8.2 mg/dL (8.5-10.1)
[2021-05-14] MEDS: VANCOMYCIN 1GM/250ML 250 ML IV SCH ×2 (04:50→15:45)
[2021-05-14] MEDS: fentaNYL Drip 2500mCg/250mlNS 250 ML IV SCH ×2 (04:51→09:37)
[2021-05-14] MEDS: MIDAZOLAM DRIP 50 mg/50mL 50 ML IV SCH ×3 (04:52→14:09)
[2021-05-14] MEDS: ACCU-CHEK COMFORT CURVE STRIP VI SCH ×3 (05:23→17:09)
[2021-05-14 07:02] LABS: Band Neutrophils % (manual) 39; Eosinophils % (manual) 3 (0-7); Lymphocytes % (manual) 3 (10.0-50.0); Metamyelocytes % 1; Myelocytes % 1
[2021-05-14] MEDS: ALBUTEROL SULF 2.5 MG/0.5ML(0.5%) NEB SOLN NEB PRN ×3 (08:44→22:24)
[2021-05-14] MEDS ORDERED: METOCLOPRAMIDE HCL 5MG/ml INJ 2ml VIAL IV ONE (10:30)
[2021-05-14] MEDS: DexAMETHasone SOD PHOS 10MG/1ML VIAL INJ IV SCH (10:32)
[2021-05-14] MEDS: PANTOPRAZOLE 40 MG/10 ML VIAL INJ IV SCH (10:32)
[2021-05-14] MEDS: ASCORBIC ACID 1,000 MG TAB PO SCH (10:33)
[2021-05-14] MEDS: FUROSEMIDE 20 MG/2 ML VIAL IV SCH (10:33)
[2021-05-14] MEDS: SODIUM CHLOR 0.9% PF (SALINE LOCK) 10ML VIAL/SYR IV SCH ×2 (10:33→21:44)
[2021-05-14] MEDS: CHOLECALCIFEROL (VITD3) 2,000 UNIT CAP/TAB PO SCH (10:34)
[2021-05-14] MEDS: ZINC SULFATE 220mg CAP or TAB PO SCH (10:37)
[2021-05-14] MEDS: PROPOFOL 100 ML IV SCH ×2 (10:53→19:55)
[2021-05-14] MEDS: BUDESONIDE (INHALATION) 0.5 MG/2 ML NEB NEB SCH ×2 (11:11→22:24)
[2021-05-14] MEDS: NOREPINEPHRINE 8 MG/250ML KIT 250 ML IV SCH (14:49)
[2021-05-14] MEDS: METOCLOPRAMIDE HCL 5MG/ml INJ 2ml VIAL IV SCH (16:30)
[2021-05-15] VITALS (83 sets, daily range): BP systolic 83–143; BP diastolic 52–73
[2021-05-15] MEDS: ACCU-CHEK COMFORT CURVE STRIP VI SCH ×4 (00:30→17:39)
[2021-05-15] MEDS: METOCLOPRAMIDE HCL 5MG/ml INJ 2ml VIAL IV SCH ×3 (00:30→15:43)
[2021-05-15] MEDS: PIPERACILLIN-TAZOB 3.375GM 100 ML IV SCH ×4 (00:30→18:25)
[2021-05-15] MEDS: VANCOMYCIN 1GM/250ML 250 ML IV SCH ×3 (00:50→20:54)
[2021-05-15] MEDS: MIDAZOLAM DRIP 50 mg/50mL 50 ML IV SCH ×4 (01:06→23:32)
[2021-05-15] MEDS: fentaNYL Drip 2500mCg/250mlNS 250 ML IV SCH ×2 (03:15→19:00)
[2021-05-15 05:18] LABS: Hematocrit 33.5 % (36.0-46.0); Hemoglobin 11.4 g/dL (12.2-16.2); Mean Corpuscular Hemoglobin 32.3 pg (28.0-32.0); Mean Corpuscular Hgb Conc. 33.9 g/dL (32.0-36.0); Mean Corpuscular Volume 95.3 fL (80.0-100.0); Red Blood Cells 3.52 10^6/uL (4.0-5.20); Red Cell Distribution Width 14.1 % (11.8-14.3); White Blood Cell 22.4 10^3/uL (4.4-10.8)
[2021-05-15 05:32] LABS: Basophils % (manual) 0 (0.0-2.0); Blast Cells 0; Metamyelocytes % 0; Myelocytes % 0; Promyelocytes % 0; Reactive Lymphocytes 0
[2021-05-15 05:36] LABS: Calcium 7.9 mg/dL (8.5-10.1); Potassium 3.5 mmol/L (3.5-5.1)
[2021-05-15 05:39] LABS: BUN/Creatinine Ratio 46.3; Bilirubin, Total 0.5 mg/dL (0.2-1.0)
[2021-05-15] MEDS: InsuLIN REG 1unit/0.01ml Soln (100units/ml) SC SCH ×4 (05:47→17:39)
[2021-05-15] MEDS: BUDESONIDE (INHALATION) 0.5 MG/2 ML NEB NEB SCH ×2 (06:18→22:23)
[2021-05-15] MEDS: ALBUTEROL SULF 2.5 MG/0.5ML(0.5%) NEB SOLN NEB PRN ×2 (06:18→22:23)
[2021-05-15 06:59] LABS: Band Neutrophils % (manual) 52; Eosinophils % (manual) 2 (0-7); Lymphocytes % (manual) 6 (10.0-50.0); Monocytes % (manual) 1 (0-12)
[2021-05-15] MEDS: FUROSEMIDE 20 MG/2 ML VIAL IV SCH (09:56)
[2021-05-15] MEDS: PANTOPRAZOLE 40 MG/10 ML VIAL INJ IV SCH (09:56)
[2021-05-15] MEDS: ZINC SULFATE 220mg CAP or TAB PO SCH (09:57)
[2021-05-15] MEDS: CHOLECALCIFEROL (VITD3) 2,000 UNIT CAP/TAB PO SCH (09:57)
[2021-05-15] MEDS: SODIUM CHLOR 0.9% PF (SALINE LOCK) 10ML VIAL/SYR IV SCH ×2 (09:57→23:32)
[2021-05-15] MEDS: ASCORBIC ACID 1,000 MG TAB PO SCH (09:57)
[2021-05-15] MEDS: PROPOFOL 100 ML IV SCH ×2 (16:38→19:00)
[2021-05-16] VITALS (82 sets, daily range): BP systolic 88–127; BP diastolic 47–64
[2021-05-16] MEDS: BUDESONIDE (INHALATION) 0.5 MG/2 ML NEB NEB SCH ×2 (05:56→18:49)
[2021-05-16] MEDS: ALBUTEROL SULF 2.5 MG/0.5ML(0.5%) NEB SOLN NEB PRN ×2 (05:56→18:49)
[2021-05-16] MEDS: PIPERACILLIN-TAZOB 3.375GM 100 ML IV SCH ×4 (06:00→18:14)
[2021-05-16] MEDS: InsuLIN REG 1unit/0.01ml Soln (100units/ml) SC SCH ×4 (06:00→18:14)
[2021-05-16] MEDS: ACCU-CHEK COMFORT CURVE STRIP VI SCH ×4 (06:00→18:14)
[2021-05-16] MEDS: PROPOFOL 100 ML IV SCH ×3 (06:30→21:00)
[2021-05-16] MEDS: MIDAZOLAM DRIP 50 mg/50mL 50 ML IV SCH ×4 (06:30→20:00)
[2021-05-16] MEDS: VANCOMYCIN 1GM/250ML 250 ML IV SCH ×2 (07:42→16:50)
[2021-05-16] MEDS: NOREPINEPHRINE 8 MG/250ML KIT 250 ML IV SCH ×2 (09:29→18:40)
[2021-05-16] MEDS: fentaNYL Drip 2500mCg/250mlNS 250 ML IV SCH (11:12)
[2021-05-16] MEDS: METOCLOPRAMIDE HCL 5MG/ml INJ 2ml VIAL IV SCH ×3 (11:26→16:49)
[2021-05-16] MEDS: CHOLECALCIFEROL (VITD3) 2,000 UNIT CAP/TAB PO SCH (11:27)
[2021-05-16] MEDS: FUROSEMIDE 20 MG/2 ML VIAL IV SCH (11:27)
[2021-05-16] MEDS: ZINC SULFATE 220mg CAP or TAB PO SCH (11:27)
[2021-05-16] MEDS: PANTOPRAZOLE 40 MG/10 ML VIAL INJ IV SCH (11:27)
[2021-05-16] MEDS: ASCORBIC ACID 1,000 MG TAB PO SCH (11:28)
[2021-05-16] MEDS: SODIUM CHLOR 0.9% PF (SALINE LOCK) 10ML VIAL/SYR IV SCH ×2 (11:29→22:00)
[2021-05-16] MEDS: ACETAMINOPHEN 500 MG TAB PO PRN ×2 (15:00→23:00)
[2021-05-17] VITALS (77 sets, daily range): BP systolic 81–137; BP diastolic 45–64
[2021-05-17] MEDS: METOCLOPRAMIDE HCL 5MG/ml INJ 2ml VIAL IV SCH ×4 (00:38→23:46)
[2021-05-17] MEDS: PIPERACILLIN-TAZOB 3.375GM 100 ML IV SCH ×5 (00:39→23:46)
[2021-05-17] MEDS: VANCOMYCIN 1GM/250ML 250 ML IV SCH ×3 (02:39→22:30)
[2021-05-17] MEDS: fentaNYL Drip 2500mCg/250mlNS 250 ML IV SCH ×2 (03:00→22:30)
[2021-05-17] MEDS ORDERED: ACETAMINOPHEN 650 mg PER 20.3 mL UD GT PRN (03:15)
[2021-05-17] MEDS ORDERED: IBUPROFEN 100MG/5ML ORAL SUSP 100 MG/5 ML UD GT PRN (03:30)
[2021-05-17] MEDS: ACETAMINOPHEN 650 mg PER 20.3 mL UD GT PRN (03:30)
[2021-05-17] MEDS ORDERED: IBUPROFEN 600 MG TAB PO ONE (03:58)
[2021-05-17 05:18] LABS: Basophils # (auto) 0 10 ^3/uL (0-0.2); Basophils % (auto) 0.3 % (0.0-2.0); Eosinophils # (auto) 0.1 10 ^3/uL (0-0.8); Eosinophils % (auto) 0.9 % (0.0-7.0); Hematocrit 31.8 % (36.0-46.0); Hemoglobin 11.1 g/dL (12.2-16.2); Lymphocytes # (auto) 0.6 10 ^3/uL (0.4-5.4); Lymphocytes % (auto) 3.7 % (10.0-50.0); Mean Corpuscular Hemoglobin 33.3 pg (28.0-32.0); Mean Corpuscular Hgb Conc. 34.9 g/dL (32.0-36.0); Mean Corpuscular Volume 95.4 fL (80.0-100.0); Monocytes # (auto) 0.2 10 ^3/uL (0-1.3); Monocytes % (auto) 0.9 % (0.0-12.0); Neutrophils # (auto) 15.4 10 ^3/uL (1.6-8.6); Neutrophils % (auto) 94.2 % (37.0-80.0); Nucleated Red Blood Cells % 0.1 %; Red Blood Cells 3.33 10^6/uL (4.0-5.20); Red Cell Distribution Width 14.1 % (11.8-14.3); White Blood Cell 16.3 10^3/uL (4.4-10.8)
[2021-05-17] MEDS: MIDAZOLAM DRIP 50 mg/50mL 50 ML IV SCH ×3 (05:30→22:02)
[2021-05-17 05:45] LABS: BUN/Creatinine Ratio 32.4; Calcium 6.6 mg/dL (8.5-10.1)
[2021-05-17] MEDS: ACCU-CHEK COMFORT CURVE STRIP VI SCH ×5 (05:45→23:46)
[2021-05-17 05:58] LABS: Potassium 2.6 mmol/L (3.5-5.1)
[2021-05-17] MEDS: InsuLIN REG 1unit/0.01ml Soln (100units/ml) SC SCH ×5 (06:00→23:47)
[2021-05-17] MEDS: PROPOFOL 100 ML IV SCH ×2 (07:13→19:30)
[2021-05-17] MEDS: ALBUTEROL SULF 2.5 MG/0.5ML(0.5%) NEB SOLN NEB PRN ×2 (09:20→22:06)
[2021-05-17] MEDS: BUDESONIDE (INHALATION) 0.5 MG/2 ML NEB NEB SCH ×2 (09:20→22:06)
[2021-05-17] MEDS: SODIUM CHLOR 0.9% PF (SALINE LOCK) 10ML VIAL/SYR IV SCH ×2 (10:00→22:22)
[2021-05-17] MEDS: FUROSEMIDE 20 MG/2 ML VIAL IV SCH (10:00)
[2021-05-17] MEDS: CHOLECALCIFEROL (VITD3) 2,000 UNIT CAP/TAB PO SCH (10:29)
[2021-05-17] MEDS: ASCORBIC ACID 1,000 MG TAB PO SCH (10:29)
[2021-05-17] MEDS: ZINC SULFATE 220mg CAP or TAB PO SCH (10:29)
[2021-05-17] MEDS: PANTOPRAZOLE 40 MG/10 ML VIAL INJ IV SCH (10:29)
[2021-05-17] MEDS ORDERED: POTASSIUM EFFERVESENT TAB 25 MEQ GT ONE (10:30)
[2021-05-17] MEDS: POTASSIUM CHL 20MEQ/100ML 100 ML IV SCH ×2 (10:30→12:30)
[2021-05-17] MEDS ORDERED: FLUCONAZOLE 100 MG TAB PO ONE (13:45)
[2021-05-17] MEDS ORDERED: ENOXAPARIN SOD 30 MG/0.3 ML SYRINGE SC ONE (14:15)
[2021-05-17] MEDS: NOREPINEPHRINE 8 MG/250ML KIT 250 ML IV SCH (20:00)
[2021-05-17] MEDS: Vital AF 1.2 Cal 1 liter bottle GT SCH (20:00)
[2021-05-18] VITALS (92 sets, daily range): BP systolic 59–133; BP diastolic 42–63
[2021-05-18] MEDS: MIDAZOLAM DRIP 50 mg/50mL 50 ML IV SCH ×5 (01:09→19:22)
[2021-05-18] MEDS: ACETAMINOPHEN 650 mg PER 20.3 mL UD GT PRN ×2 (01:59→08:28)
[2021-05-18] MEDS: PROPOFOL 100 ML IV SCH ×3 (05:00→22:00)
[2021-05-18 05:31] LABS: Basophils # (auto) 0 10 ^3/uL (0-0.2); Basophils % (auto) 0.2 % (0.0-2.0); Eosinophils # (auto) 0.3 10 ^3/uL (0-0.8); Eosinophils % (auto) 1.4 % (0.0-7.0); Hematocrit 34.4 % (36.0-46.0); Hemoglobin 11.3 g/dL (12.2-16.2); Lymphocytes # (auto) 0.8 10 ^3/uL (0.4-5.4); Lymphocytes % (auto) 4.2 % (10.0-50.0); Mean Corpuscular Hemoglobin 31.4 pg (28.0-32.0); Mean Corpuscular Hgb Conc. 32.8 g/dL (32.0-36.0); Mean Corpuscular Volume 95.7 fL (80.0-100.0); Monocytes # (auto) 0.4 10 ^3/uL (0-1.3); Monocytes % (auto) 2.1 % (0.0-12.0); Neutrophils # (auto) 18.2 10 ^3/uL (1.6-8.6); Neutrophils % (auto) 92.1 % (37.0-80.0); Nucleated Red Blood Cells % 0.1 %; Red Blood Cells 3.59 10^6/uL (4.0-5.20); Red Cell Distribution Width 14.1 % (11.8-14.3); White Blood Cell 19.8 10^3/uL (4.4-10.8)
[2021-05-18 05:51] LABS: Potassium 3.6 mmol/L (3.5-5.1)
[2021-05-18 05:55] LABS: Magnesium 2.3 mg/dL (1.6-2.6)
[2021-05-18] MEDS: ACCU-CHEK COMFORT CURVE STRIP VI SCH ×2 (05:59→18:00)
[2021-05-18] MEDS: InsuLIN REG 1unit/0.01ml Soln (100units/ml) SC SCH ×2 (05:59→18:00)
[2021-05-18] MEDS: BUDESONIDE (INHALATION) 0.5 MG/2 ML NEB NEB SCH ×2 (06:00→22:36)
[2021-05-18] MEDS: ALBUTEROL SULF 2.5 MG/0.5ML(0.5%) NEB SOLN NEB PRN ×2 (06:00→22:37)
[2021-05-18] MEDS: PIPERACILLIN-TAZOB 3.375GM 100 ML IV SCH ×3 (06:05→18:31)
[2021-05-18] MEDS: fentaNYL Drip 2500mCg/250mlNS 250 ML IV SCH ×2 (06:07→13:44)
[2021-05-18] MEDS: METOCLOPRAMIDE HCL 5MG/ml INJ 2ml VIAL IV SCH ×2 (08:11→17:00)
[2021-05-18] MEDS: VANCOMYCIN 1GM/250ML 250 ML IV SCH ×2 (09:28→22:40)
[2021-05-18] MEDS: CHOLECALCIFEROL (VITD3) 2,000 UNIT CAP/TAB PO SCH (09:38)
[2021-05-18] MEDS: ASCORBIC ACID 1,000 MG TAB PO SCH (09:38)
[2021-05-18] MEDS: FLUCONAZOLE 100 MG TAB PO SCH (09:38)
[2021-05-18] MEDS: SODIUM CHLOR 0.9% PF (SALINE LOCK) 10ML VIAL/SYR IV SCH ×2 (09:38→22:00)
[2021-05-18] MEDS: PANTOPRAZOLE 40 MG/10 ML VIAL INJ IV SCH (09:38)
[2021-05-18] MEDS: ZINC SULFATE 220mg CAP or TAB PO SCH (09:38)
[2021-05-18] MEDS: FUROSEMIDE 20 MG/2 ML VIAL IV SCH (09:38)
[2021-05-18] MEDS ORDERED: TPN PER PHARMACY 0 ML IV SCH (12:15)
[2021-05-18 13:38] LABS: Albumin 1.6 g/dL (3.4-5.0); Calcium 8.3 mg/dL (8.5-10.1); Potassium 3.7 mmol/L (3.5-5.1)
[2021-05-18 13:46] LABS: Bilirubin, Total 0.6 mg/dL (0.2-1.0); Phosphorus 2.1 mg/dL (2.5-4.90); Pre Albumin 21.8 mg/dL (20.0-40.0); Total Protein 4.9 g/dL (6.4-8.2)
[2021-05-18 14:57] LABS: INR 1.2 (0.9-1.15)
[2021-05-18] MEDS ORDERED: DEXTROSE (50%) 50ML SYRG IV SCH (18:00)
[2021-05-18] MEDS: NOREPINEPHRINE 8 MG/250ML KIT 250 ML IV SCH (19:21)
[2021-05-18] MEDS ORDERED: TPN PER PHARMACY IV NR ×7 (20:00)
[2021-05-19] VITALS (92 sets, daily range): BP systolic 91–149; BP diastolic 44–64
[2021-05-19] MEDS: METOCLOPRAMIDE HCL 5MG/ml INJ 2ml VIAL IV SCH ×4 (01:26→23:34)
[2021-05-19] MEDS: PIPERACILLIN-TAZOB 3.375GM 100 ML IV SCH ×5 (01:28→23:34)
[2021-05-19] MEDS: MIDAZOLAM DRIP 50 mg/50mL 50 ML IV SCH ×4 (01:31→23:31)
[2021-05-19] MEDS: PROPOFOL 100 ML IV SCH ×2 (04:00→22:00)
[2021-05-19] MEDS: VANCOMYCIN 1GM/250ML 250 ML IV SCH ×3 (05:00→20:53)
[2021-05-19] MEDS: ACCU-CHEK COMFORT CURVE STRIP VI SCH ×5 (06:00→23:13)
[2021-05-19] MEDS: InsuLIN REG 1unit/0.01ml Soln (100units/ml) SC SCH ×5 (06:00→23:30)
[2021-05-19 06:13] LABS: Basophils # (auto) 0 10 ^3/uL (0-0.2); Basophils % (auto) 0.1 % (0.0-2.0); Eosinophils # (auto) 0.4 10 ^3/uL (0-0.8); Eosinophils % (auto) 2.8 % (0.0-7.0); Hematocrit 29.4 % (36.0-46.0); Hemoglobin 9.9 g/dL (12.2-16.2); Lymphocytes # (auto) 0.8 10 ^3/uL (0.4-5.4); Lymphocytes % (auto) 5.8 % (10.0-50.0); Mean Corpuscular Hgb Conc. 33.7 g/dL (32.0-36.0); Mean Corpuscular Volume 97.9 fL (80.0-100.0); Monocytes # (auto) 0.1 10 ^3/uL (0-1.3); Neutrophils # (auto) 12.7 10 ^3/uL (1.6-8.6); Neutrophils % (auto) 90.3 % (37.0-80.0); Nucleated Red Blood Cells % 0.1 %; Red Cell Distribution Width 14.8 % (11.8-14.3)
[2021-05-19] MEDS: BUDESONIDE (INHALATION) 0.5 MG/2 ML NEB NEB SCH ×2 (06:15→22:41)
[2021-05-19] MEDS: ALBUTEROL SULF 2.5 MG/0.5ML(0.5%) NEB SOLN NEB PRN ×2 (06:15→22:41)
[2021-05-19 07:01] LABS: Albumin 1.4 g/dL (3.4-5.0); Calcium 7.8 mg/dL (8.5-10.1); Magnesium 2.2 mg/dL (1.6-2.6); Potassium 4.5 mmol/L (3.5-5.1)
[2021-05-19 07:20] LABS: Bilirubin, Total 0.4 mg/dL (0.2-1.0); Phosphorus 5.7 mg/dL (2.5-4.90); Total Protein 4.3 g/dL (6.4-8.2)
[2021-05-19] MEDS: PANTOPRAZOLE 40 MG/10 ML VIAL INJ IV SCH (08:38)
[2021-05-19] MEDS: FUROSEMIDE 20 MG/2 ML VIAL IV SCH (08:38)
[2021-05-19] MEDS: SODIUM CHLOR 0.9% PF (SALINE LOCK) 10ML VIAL/SYR IV SCH ×2 (08:39→22:01)
[2021-05-19] MEDS: ZINC SULFATE 220mg CAP or TAB PO SCH (08:39)
[2021-05-19] MEDS: FLUCONAZOLE 100 MG TAB PO SCH (08:40)
[2021-05-19] MEDS: CHOLECALCIFEROL (VITD3) 2,000 UNIT CAP/TAB PO SCH (08:40)
[2021-05-19] MEDS: ASCORBIC ACID 1,000 MG TAB PO SCH (08:40)
[2021-05-19] MEDS: fentaNYL Drip 2500mCg/250mlNS 250 ML IV SCH ×2 (10:14→23:29)
[2021-05-19] MEDS: NOREPINEPHRINE 8 MG/250ML KIT 250 ML IV SCH (11:15)
[2021-05-19 13:19] LABS: Potassium 3.1 mmol/L (3.5-5.1)
[2021-05-19 13:23] LABS: Phosphorus 2.4 mg/dL (2.5-4.90)
[2021-05-19] MEDS ORDERED: POTASSIUM PHOSPHATE 22 MEQ in SODIUM CHL 0.9% 100 ML IV ONE (14:30)
[2021-05-19] MEDS ORDERED: TPN PER PHARMACY IV NR ×10 (20:00)
[2021-05-20] VITALS (100 sets, daily range): BP systolic 11–187; BP diastolic 53–87
[2021-05-20] MEDS: ACETAMINOPHEN 650 mg PER 20.3 mL UD GT PRN (01:04)
[2021-05-20] MEDS: MIDAZOLAM DRIP 50 mg/50mL 50 ML IV SCH ×3 (02:59→20:49)
[2021-05-20] MEDS: PROPOFOL 100 ML IV SCH ×3 (04:16→23:27)
[2021-05-20 04:44] LABS: Hematocrit 33.1 % (36.0-46.0); Mean Corpuscular Hemoglobin 31.9 pg (28.0-32.0); Mean Corpuscular Hgb Conc. 33.1 g/dL (32.0-36.0); Mean Corpuscular Volume 96.3 fL (80.0-100.0); Red Blood Cells 3.44 10^6/uL (4.0-5.20); Red Cell Distribution Width 14.6 % (11.8-14.3); White Blood Cell 11.8 10^3/uL (4.4-10.8)
[2021-05-20 04:45] LABS: Potassium 3.1 mmol/L (3.5-5.1)
[2021-05-20 04:48] LABS: Basophils % (manual) 0 (0.0-2.0); Blast Cells 0; Myelocytes % 0; Promyelocytes % 0; Reactive Lymphocytes 0
[2021-05-20 04:51] LABS: Albumin 1.6 g/dL (3.4-5.0); BUN/Creatinine Ratio 48.3; Bilirubin, Total 0.4 mg/dL (0.2-1.0); Calcium 8.1 mg/dL (8.5-10.1); Magnesium 2.1 mg/dL (1.6-2.6); Phosphorus 2.8 mg/dL (2.5-4.90); Total Protein 4.9 g/dL (6.4-8.2)
[2021-05-20 05:27] LABS: Band Neutrophils % (manual) 48; Eosinophils % (manual) 4 (0-7); Lymphocytes % (manual) 7 (10.0-50.0); Metamyelocytes % 2; Monocytes % (manual) 2 (0-12)
[2021-05-20] MEDS: VANCOMYCIN 1GM/250ML 250 ML IV SCH ×3 (06:00→22:51)
[2021-05-20] MEDS: InsuLIN REG 1unit/0.01ml Soln (100units/ml) SC SCH ×4 (06:00→23:51)
[2021-05-20] MEDS: ACCU-CHEK COMFORT CURVE STRIP VI SCH ×4 (06:00→23:46)
[2021-05-20] MEDS: ALBUTEROL SULF 2.5 MG/0.5ML(0.5%) NEB SOLN NEB PRN ×2 (06:32→21:32)
[2021-05-20] MEDS: BUDESONIDE (INHALATION) 0.5 MG/2 ML NEB NEB SCH ×2 (06:32→21:32)
[2021-05-20] MEDS ORDERED: POTASSIUM CHL 20MEQ/100ML 100 ML IV ONE ×2 (06:56→07:00)
[2021-05-20] MEDS: PIPERACILLIN-TAZOB 3.375GM 100 ML IV SCH ×3 (07:20→18:02)
[2021-05-20] MEDS: METOCLOPRAMIDE HCL 5MG/ml INJ 2ml VIAL IV SCH ×3 (08:00→23:49)
[2021-05-20] MEDS: ASCORBIC ACID 1,000 MG TAB PO SCH (10:00)
[2021-05-20] MEDS: ZINC SULFATE 220mg CAP or TAB PO SCH (10:00)
[2021-05-20] MEDS: SODIUM CHLOR 0.9% PF (SALINE LOCK) 10ML VIAL/SYR IV SCH ×2 (10:00→22:51)
[2021-05-20] MEDS: FUROSEMIDE 20 MG/2 ML VIAL IV SCH (10:00)
[2021-05-20] MEDS: PANTOPRAZOLE 40 MG/10 ML VIAL INJ IV SCH (10:00)
[2021-05-20] MEDS: FLUCONAZOLE 100 MG TAB PO SCH (10:00)
[2021-05-20] MEDS: CHOLECALCIFEROL (VITD3) 2,000 UNIT CAP/TAB PO SCH (10:00)
[2021-05-20] MEDS: NOREPINEPHRINE 8 MG/250ML KIT 250 ML IV SCH (11:15)
[2021-05-20] MEDS: ROCURONIUM BROMIDE 1,000 MG in D5W 5% 150 ML IV SCH (17:00)
[2021-05-20] MEDS ORDERED: VANCOMYCIN 1GM/250ML 250 ML IV SCH (20:00)
[2021-05-20] MEDS ORDERED: TPN PER PHARMACY IV NR ×8 (20:00)
[2021-05-21] VITALS (97 sets, daily range): BP systolic 97–187; BP diastolic 50–87
[2021-05-21] MEDS: PIPERACILLIN-TAZOB 3.375GM 100 ML IV SCH ×5 (00:04→23:54)
[2021-05-21] MEDS: fentaNYL Drip 2500mCg/250mlNS 250 ML IV SCH ×2 (00:08→09:00)
[2021-05-21] MEDS: MIDAZOLAM DRIP 50 mg/50mL 50 ML IV SCH ×5 (00:24→20:25)
[2021-05-21 03:49] LABS: Hemoglobin 11.7 g/dL (12.2-16.2); Mean Corpuscular Hemoglobin 32.1 pg (28.0-32.0); Mean Corpuscular Hgb Conc. 33.3 g/dL (32.0-36.0); Mean Corpuscular Volume 96.4 fL (80.0-100.0); Red Blood Cells 3.63 10^6/uL (4.0-5.20); Red Cell Distribution Width 14.6 % (11.8-14.3); White Blood Cell 16.4 10^3/uL (4.4-10.8)
[2021-05-21 04:14] LABS: Albumin 1.5 g/dL (3.4-5.0); Calcium 8.1 mg/dL (8.5-10.1); Potassium 3.8 mmol/L (3.5-5.1)
[2021-05-21 04:17] LABS: Bilirubin, Total 0.5 mg/dL (0.2-1.0); Phosphorus 3.2 mg/dL (2.5-4.90); Total Protein 5.1 g/dL (6.4-8.2)
[2021-05-21 04:35] LABS: Basophils % (manual) 0 (0.0-2.0); Blast Cells 0; Promyelocytes % 0; Reactive Lymphocytes 0
[2021-05-21] MEDS: PROPOFOL 100 ML IV SCH ×3 (05:07→12:05)
[2021-05-21] MEDS: InsuLIN REG 1unit/0.01ml Soln (100units/ml) SC SCH ×3 (06:00→18:00)
[2021-05-21] MEDS: ACCU-CHEK COMFORT CURVE STRIP VI SCH ×3 (06:10→18:05)
[2021-05-21] MEDS: ALBUTEROL SULF 2.5 MG/0.5ML(0.5%) NEB SOLN NEB PRN ×2 (06:18→21:51)
[2021-05-21] MEDS: BUDESONIDE (INHALATION) 0.5 MG/2 ML NEB NEB SCH ×2 (06:18→21:51)
[2021-05-21 06:41] LABS: Band Neutrophils % (manual) 72; Eosinophils % (manual) 2 (0-7); Lymphocytes % (manual) 8 (10.0-50.0); Metamyelocytes % 1; Monocytes % (manual) 1 (0-12); Myelocytes % 1
[2021-05-21] MEDS: METOCLOPRAMIDE HCL 5MG/ml INJ 2ml VIAL IV SCH ×3 (10:04→23:54)
[2021-05-21] MEDS: ASCORBIC ACID 1,000 MG TAB PO SCH (10:05)
[2021-05-21] MEDS: PANTOPRAZOLE 40 MG/10 ML VIAL INJ IV SCH (10:05)
[2021-05-21] MEDS: ZINC SULFATE 220mg CAP or TAB PO SCH (10:05)
[2021-05-21] MEDS: CHOLECALCIFEROL (VITD3) 2,000 UNIT CAP/TAB PO SCH (10:05)
[2021-05-21] MEDS: FUROSEMIDE 20 MG/2 ML VIAL IV SCH (10:05)
[2021-05-21] MEDS: FLUCONAZOLE 100 MG TAB PO SCH (10:05)
[2021-05-21] MEDS: SODIUM CHLOR 0.9% PF (SALINE LOCK) 10ML VIAL/SYR IV SCH ×2 (10:05→22:26)
[2021-05-21] MEDS: NOREPINEPHRINE 8 MG/250ML KIT 250 ML IV SCH (11:15)
[2021-05-21] MEDS: VANCOMYCIN 1GM/250ML 250 ML IV SCH (12:26)
[2021-05-21] MEDS ORDERED: MIDAZOLAM DRIP 50 mg/50mL 50 ML IV ONE (14:56)
[2021-05-21] MEDS: ROCURONIUM BROMIDE 1,000 MG in D5W 5% 150 ML IV SCH (16:45)
[2021-05-21] MEDS ORDERED: D5W 5% 1,000 ML IV ONE (20:00)
[2021-05-21] MEDS ORDERED: TPN PER PHARMACY IV NR ×8 (20:00)
[2021-05-22] VITALS (95 sets, daily range): BP systolic 92–164; BP diastolic 51–93
[2021-05-22] MEDS: PROPOFOL 100 ML IV SCH ×4 (00:25→17:23)
[2021-05-22] MEDS: fentaNYL Drip 2500mCg/250mlNS 250 ML IV SCH ×3 (01:40→16:06)
[2021-05-22] MEDS: VANCOMYCIN 1GM/250ML 250 ML IV SCH ×2 (03:33→16:21)
[2021-05-22] MEDS: MIDAZOLAM DRIP 50 mg/50mL 50 ML IV SCH ×3 (04:36→17:21)
[2021-05-22] MEDS: ACCU-CHEK COMFORT CURVE STRIP VI SCH ×5 (06:00→23:38)
[2021-05-22] MEDS: BUDESONIDE (INHALATION) 0.5 MG/2 ML NEB NEB SCH ×2 (06:32→22:08)
[2021-05-22 06:43] LABS: Potassium 3.7 mmol/L (3.5-5.1)
[2021-05-22 06:45] LABS: Hematocrit 31.9 % (36.0-46.0); Hemoglobin 10.8 g/dL (12.2-16.2); Mean Corpuscular Hemoglobin 32.8 pg (28.0-32.0); Mean Corpuscular Hgb Conc. 33.8 g/dL (32.0-36.0); Mean Corpuscular Volume 96.8 fL (80.0-100.0); Red Blood Cells 3.29 10^6/uL (4.0-5.20); White Blood Cell 14.8 10^3/uL (4.4-10.8)
[2021-05-22] MEDS: PIPERACILLIN-TAZOB 3.375GM 100 ML IV SCH ×3 (06:50→17:25)
[2021-05-22] MEDS: InsuLIN REG 1unit/0.01ml Soln (100units/ml) SC SCH ×5 (06:52→23:38)
[2021-05-22 06:54] LABS: Albumin 1.5 g/dL (3.4-5.0); BUN/Creatinine Ratio 69.6; Bilirubin, Total 0.4 mg/dL (0.2-1.0); Calcium 7.9 mg/dL (8.5-10.1); Magnesium 2.3 mg/dL (1.6-2.6)
[2021-05-22 07:10] LABS: Basophils % (manual) 0 (0.0-2.0); Blast Cells 0; Metamyelocytes % 0; Myelocytes % 0; Promyelocytes % 0; Reactive Lymphocytes 0
[2021-05-22] MEDS: ROCURONIUM BROMIDE 1,000 MG in D5W 5% 150 ML IV SCH (07:18)
[2021-05-22] MEDS: METOCLOPRAMIDE HCL 5MG/ml INJ 2ml VIAL IV SCH ×2 (08:05→16:06)
[2021-05-22] MEDS: SODIUM CHLOR 0.9% PF (SALINE LOCK) 10ML VIAL/SYR IV SCH ×2 (09:39→21:32)
[2021-05-22] MEDS: ZINC SULFATE 220mg CAP or TAB PO SCH (09:39)
[2021-05-22] MEDS: FUROSEMIDE 20 MG/2 ML VIAL IV SCH (09:39)
[2021-05-22] MEDS: FLUCONAZOLE 100 MG TAB PO SCH (09:39)
[2021-05-22] MEDS: ASCORBIC ACID 1,000 MG TAB PO SCH (09:39)
[2021-05-22] MEDS: CHOLECALCIFEROL (VITD3) 2,000 UNIT CAP/TAB PO SCH (09:39)
[2021-05-22] MEDS: PANTOPRAZOLE 40 MG/10 ML VIAL INJ IV SCH (09:39)
[2021-05-22 11:10] LABS: Band Neutrophils % (manual) 51; Eosinophils % (manual) 3 (0-7); Lymphocytes % (manual) 5 (10.0-50.0); Monocytes % (manual) 6 (0-12)
[2021-05-22] MEDS: NOREPINEPHRINE 8 MG/250ML KIT 250 ML IV SCH (11:15)
[2021-05-22] MEDS ORDERED: SODIUM PHOSP 20MEQ(15MMOL) IN NS 100 ML IV ONE (13:00)
[2021-05-22] MEDS ORDERED: TPN PER PHARMACY IV NR ×8 (20:00)
[2021-05-23] VITALS (51 sets, daily range): BP systolic 118–155; BP diastolic 57–76
[2021-05-23] MEDS: PIPERACILLIN-TAZOB 3.375GM 100 ML IV SCH ×2 (01:00→06:36)
[2021-05-23] MEDS ORDERED: VANCOMYCIN 1GM/250ML 250 ML IV SCH (04:00)
[2021-05-23 04:44] LABS: Albumin 1.5 g/dL (3.4-5.0); BUN/Creatinine Ratio 94.7; Bilirubin, Total 0.4 mg/dL (0.2-1.0); Calcium 7.8 mg/dL (8.5-10.1); Magnesium 2.3 mg/dL (1.6-2.6); Phosphorus 2.5 mg/dL (2.5-4.90); Total Protein 5.1 g/dL (6.4-8.2)
[2021-05-23] MEDS: InsuLIN REG 1unit/0.01ml Soln (100units/ml) SC SCH ×2 (05:43→12:00)
[2021-05-23] MEDS: ACCU-CHEK COMFORT CURVE STRIP VI SCH ×2 (05:43→11:59)
[2021-05-23] MEDS: ALBUTEROL SULF 2.5 MG/0.5ML(0.5%) NEB SOLN NEB PRN ×2 (06:14→06:15)
[2021-05-23] MEDS: BUDESONIDE (INHALATION) 0.5 MG/2 ML NEB NEB SCH ×2 (06:14→06:15)
[2021-05-23] MEDS: MIDAZOLAM DRIP 50 mg/50mL 50 ML IV SCH (08:03)
[2021-05-23] MEDS: METOCLOPRAMIDE HCL 5MG/ml INJ 2ml VIAL IV SCH ×2 (09:03)
[2021-05-23] MEDS: PROPOFOL 100 ML IV SCH (09:03)
[2021-05-23] MEDS: FUROSEMIDE 20 MG/2 ML VIAL IV SCH (10:28)
[2021-05-23] MEDS: PANTOPRAZOLE 40 MG/10 ML VIAL INJ IV SCH (10:28)
[2021-05-23] MEDS: ASCORBIC ACID 1,000 MG TAB PO SCH (10:29)
[2021-05-23] MEDS: FLUCONAZOLE 100 MG TAB PO SCH (10:29)
[2021-05-23] MEDS: CHOLECALCIFEROL (VITD3) 2,000 UNIT CAP/TAB PO SCH (10:29)
[2021-05-23] MEDS: ZINC SULFATE 220mg CAP or TAB PO SCH (10:29)
[2021-05-23] MEDS: NOREPINEPHRINE 8 MG/250ML KIT 250 ML IV SCH (10:30)
[2021-05-23] MEDS: SODIUM CHLOR 0.9% PF (SALINE LOCK) 10ML VIAL/SYR IV SCH (10:30)
[2021-05-23] MEDS ORDERED: LORazepam 2MG/ML-1ML VIAL IV PRN (12:15)
[2021-05-23] MEDS ORDERED: MORPHINE SULFATE INJECTION 2 MG/ML SYRG IV PRN (12:15)
[2021-05-23] MEDS ORDERED: TPN PER PHARMACY IV NR ×8 (20:00)
== END 2021-05-23 20:26 | DRG 870 ==
LOC: ER 16:14 → EDBD 16:14 → TELE 23:44 → TELE-EAST 05-02 17:09 → EAST 05-05 10:29 → TELE-E-ADS 05-05 12:01 → ICU WEST 05-06 09:55
PROVIDERS: ADMIT Nurse Practitioner; ATTEND Internal Medicine Pulmonary Disease
PROC: XW033E5 Introduction of Remdesivir Anti-infective into Peripheral Vein, Percutaneous Approach, New Technology Group 5 (ICD-10-PCS; 2021-05-01)
PROC: 05HA33Z Insertion of Infusion Device into Left Brachial Vein, Percutaneous Approach (ICD-10-PCS; 2021-05-02)
PROC: B54NZZA Ultrasonography of Left Upper Extremity Veins, Guidance (ICD-10-PCS; 2021-05-02)
PROC: 5A1955Z Respiratory Ventilation, Greater than 96 Consecutive Hours (ICD-10-PCS; principal; 2021-05-06)
PROC: 0BH17EZ Insertion of Endotracheal Airway into Trachea, Via Natural or Artificial Opening (ICD-10-PCS; 2021-05-06)
PROC: 02HV33Z Insertion of Infusion Device into Superior Vena Cava, Percutaneous Approach (ICD-10-PCS; 2021-05-06)
PROC: XW033H5 Introduction of Tocilizumab into Peripheral Vein, Percutaneous Approach, New Technology Group 5 (ICD-10-PCS; 2021-05-08)
DX: A41.9 Sepsis, unspecified organism (principal); U07.1 COVID-19; J12.82 Pneumonia due to coronavirus disease 2019; J96.01 Acute respiratory failure with hypoxia; R65.21 Severe sepsis with septic shock; B37.49 Other urogenital candidiasis; J44.0 Chronic obstructive pulmonary disease with (acute) lower respiratory infection; E87.6 Hypokalemia; R79.82 Elevated C-reactive protein (CRP); D89.839 Cytokine release syndrome, grade unspecified; E78.5 Hyperlipidemia, unspecified; I10 Essential (primary) hypertension; Z90.710 Acquired absence of both cervix and uterus; Z88.5 Allergy status to narcotic agent
CPT/HCPCS: 36415; 36569; 36600; 51702; 71045; 71275; 80048; 80053; 80202; 81001; 82040; 82728; 82805; 82947; 82962; 83605; 83615; 83735; 84100; 84132; 84478; 84484; 85007; 85025; 85027; 85379; 85610; 85730; 86141; 87040; 87070; 87077; 87081; 87086; 87088; 87186; 87205; 87426; 93005; 93970; 94002; 94003; 94640; 96365; 96366; 96375; 99291; C9113; G0378; J0330; J0696; J1100; J1815; J2250; J2405; J2543; J2704; J3480; J7060; J7131